=== PATIENT | female | born 1970 | race Two or more races ===

== ENCOUNTER 2018-03-02 06:31 | Day surgery (SDC) | payer OTHER ==
[~2018-03-02] VITALS: Ht 157.5 cm; Wt 86.2 kg
[2018-03-02 06:51] VITALS: BP 111/71
[2018-03-02 13:41] VITALS: BP 120/77
== END 2018-03-02 13:25 | disposition home or self-care (01) ==
LOC: DS
PROVIDERS: Obstetrics & Gynecology
PROC: 0UPD7HZ Removal of Contraceptive Device from Uterus and Cervix, Via Natural or Artificial Opening (ICD-10-PCS; 2018-03-02)
PROC: 0UB70ZZ Excision of Bilateral Fallopian Tubes, Open Approach (ICD-10-PCS; 2018-03-02)
PROC: 0UDB7ZZ Extraction of Endometrium, Via Natural or Artificial Opening (ICD-10-PCS; principal; 2018-03-02 07:30)
DX: N92.1 Excessive and frequent menstruation with irregular cycle (principal); Z30.432 Encounter for removal of intrauterine contraceptive device; Z30.2 Encounter for sterilization
CPT/HCPCS: C1758; J0690; J1170; J2250; J2405; J2704; J3010; J3490; J7120